=== PATIENT | female | born 1980 ===

== ENCOUNTER 2018-06-23 08:19 | Outpatient (CLI) | payer OTHER ==
[~2018-06-23] VITALS: Ht 162.6 cm; Wt 70.3 kg
[2018-06-23] MEDS ORDERED: ZYRTEC10 MG PO (10:53)
[2018-06-23] MEDS ORDERED: SINGULAIR 10MG10 MG PO (10:55)
== END 2018-06-23 08:45 | disposition home or self-care (01) ==
LOC: OFIC 805 08:19
DX: J01.90 Acute sinusitis, unspecified (principal); J33.9 Nasal polyp, unspecified

== ENCOUNTER 2019-03-09 08:45 | Outpatient (CLI) | payer OTHER ==
[~2019-03-09] VITALS: Ht 152.4 cm; Wt 70.3 kg
[~2019-03-09 08:45] MED LIST: SINGULAIR 10MG10 MG PO; ZYRTEC10 MG PO
[2019-03-09] MEDS ORDERED: CIPRO500 MG PO (12:01)
[2019-03-09] MEDS ORDERED: FLUCONAZOLE150 MG PO (12:02)
== END 2019-03-09 09:20 | disposition home or self-care (01) ==
LOC: OFIC 805 08:45
DX: J32.8 Other chronic sinusitis (principal); R05 Cough; J32.0 Chronic maxillary sinusitis

== ENCOUNTER 2019-03-30 07:33 | Outpatient (CLI) | payer OTHER ==
[~2019-03-30] VITALS: Ht 152.4 cm; Wt 70.3 kg
[~2019-03-30 07:33] MED LIST changes: +CIPRO500 MG PO; +FLUCONAZOLE150 MG PO
[2019-03-30] MEDS ORDERED: FLONASE16 GM NASAL (10:49)
== END 2019-03-30 12:43 | disposition home or self-care (01) ==
LOC: OFIC 805 07:33
DX: J32.8 Other chronic sinusitis (principal); J33.8 Other polyp of sinus; R05 Cough; J32.0 Chronic maxillary sinusitis

== ENCOUNTER 2022-12-10 09:40 | Day surgery (SDC) | payer OTHER ==
[~2022-12-10 09:40] MED LIST changes: +FLONASE16 GM NASAL
== END 2022-12-10 15:15 | disposition home or self-care (01) ==
LOC: AMB-ENDOS 09:40
PROVIDERS: ATTEND Colon & Rectal Surgery
DX: D12.2 Benign neoplasm of ascending colon (principal); D12.3 Benign neoplasm of transverse colon; K62.5 Hemorrhage of anus and rectum; K64.8 Other hemorrhoids; Z20.822 Contact with and (suspected) exposure to COVID-19